=== PATIENT | male | born 1985 | race Caucasian/White ===

== ENCOUNTER 2024-03-12 11:07 | Emergency (ER) | payer BC | END 2024-03-12 12:40 | disposition home or self-care (01) | LOC: CSHERS 11:07 | DX: L23.7 Allergic contact dermatitis due to plants, except food (principal); I10 Essential (primary) hypertension; F17.210 Nicotine dependence, cigarettes, uncomplicated | CPT/HCPCS: 99282 ==

== ENCOUNTER 2024-04-24 19:19 | Emergency (ER) | payer BC ==
[2024-04-24] MEDS ORDERED: Dexamethasone 10 MG/ML VIAL ONE (19:53)
== END 2024-04-24 20:15 | disposition home or self-care (01) ==
LOC: CSHERS 19:19
DX: L23.7 Allergic contact dermatitis due to plants, except food (principal); I10 Essential (primary) hypertension; F17.210 Nicotine dependence, cigarettes, uncomplicated
CPT/HCPCS: 96372; 99282; J1100